=== PATIENT | female | born 1940 | race Caucasian/White ===

== ENCOUNTER → 2018-06-28 14:53 | Outpatient (CLI) | payer MEDICARE, BC, SELFPAY ==
--- NOTE | 2018-06-28 15:01 | RAD_ITS ---
STUDY: X-RAY CHEST REASON FOR EXAM: Female, 78 years old. Cough and shortness of breath. TECHNIQUE: PA and lateral views of the chest. COMPARISON: None. FINDINGS: There is evidence of increased interstitial markings with areas of confluence at the lung bases and bronchiectasis. Cystic spaces are seen. Findings are in keeping with chronic interstitial fibrosis with honeycombing. Superimposed bibasilar atelectasis and/or early infiltrate cannot be excluded. There is no demonstrated pleural abnormality. Normal size heart. Normal mediastinum and caterina. Normal visualized pulmonary arteries. There is atherosclerotic calcification of the aortic arch with tortuosity. There are degenerative changes of the visualized thoracic spine. Normal visualized ribs, clavicles, and shoulders. There is no demonstrated abnormality of the visualized soft tissue structures of the upper abdomen. RAD/Chest PA and Lateral IMPRESSION: Findings suggestive of chronic interstitial disease with honeycombing and bronchiectasis. Electronically Signed: Edy Amaya MD at 15:20 EST Tel [phone], Service support ,
== END ==
PROVIDERS: Family Provider Nurse Practitioner Gerontology; PCP Nurse Practitioner Gerontology; Referring Provider Nurse Practitioner Gerontology; Visit Provider Nurse Practitioner Gerontology
DX: R05 Cough (principal)
CPT/HCPCS: 71046